=== PATIENT | female | born 1935 | race African-American/Black ===

== ENCOUNTER 2020-09-09 14:08 | Inpatient (IN) | payer MEDICARE, OTHER ==
[~2020-09-09] VITALS: Ht 154.9 cm; Wt 52.3 kg
[2020-09-09] MEDS ORDERED: SPIRONOLACTONE25 MG ORAL (14:19)
[2020-09-09] MEDS ORDERED: LATANOPROST2.5 ML BOTH EYES (14:19)
[2020-09-09] MEDS ORDERED: HYDRALAZINE HCL50 MG ORAL (14:19)
[2020-09-09] MEDS ORDERED: ACETAMINOPHEN325 M1 ORAL (14:20)
[2020-09-09 14:54] LABS: EOSINOPHILS % (AUTO) 2.9 % (0.0-3.0); HEMATOCRIT 39.2 % (37.0-47.0); HEMOGLOBIN 12.8 G/DL (12.0-16.0); LYMPHOCYTES % (AUTO) 47.5 % (20.0-45.0); MEAN CORPUSCULAR VOLUME 86 FL (80-99); MONOCYTES % (AUTO) 7.1 % (1.0-10.0); NEUTROPHILS % (AUTO) 41.5 % (45.0-75.0); PLATELET COUNT 145 K/UL (150-450); RED BLOOD COUNT 4.56 M/UL (4.20-5.40); RED CELL DISTRIBUTION WIDTH 13.5 % (11.6-14.8); WHITE BLOOD COUNT 4.7 K/UL (4.8-10.8)
--- NOTE | 2020-09-09 15:04 | Diagnostic Imaging Report ---
Indication: Altered mental status Technique: XRAY Chest 1v Comparison: 01/05/2008 Findings: Heart size and mediastinal contours within normal limits and stable compared to the prior exam. Atherosclerotic calcifications noted in the aorta. There is generalized interstitial prominence. Which is similar compared to the prior exam. No focal consolidation, pleural effusion or pneumothorax. Bones are demineralized and there are degenerative changes in the spine. IMPRESSION: Generalized nonspecific interstitial prominence, favored to be chronic as similar findings were noted on the previous exam. Focal airspace consolidation, pleural effusion or pneumothorax.
[2020-09-09 15:12] LABS: CALCIUM 8.7 MG/DL (8.5-10.1); CREATININE 1.1 MG/DL (0.55-1.30); POTASSIUM 3.7 MMOL/L (3.5-5.1)
--- NOTE | 2020-09-09 15:14 | Emergency Room Report ---
History of Present Illness General Chief Complaint: General Complaint Source: Patient, Medical Record, EMS Present Illness HPI This patient was [facility] in from a [facility]. She was sent in for change in her behavior. Per EMS, the patient had been yelling out and acting agitated. Also there was concern that her blood pressure was a little lower than it typically is with a systolic of 100. Patient has a history of bowel obstruction. She also has a history of encephalopathy and dementia. The patient herself has no specific complaints and is unable to give a history. 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 Patient History Past Medical History: see triage record, old chart reviewed, DM, CAD, GERD, dementia Social History: Denies: smoking, alcohol use, drug use Reviewed Nursing Documentation: PMH: Agreed; PSxH: Agreed Review of Systems All Other Systems: negative except mentioned in HPI Physical Exam Vital Signs Date Time Temp Pulse Resp B/P (MAP) Pulse Ox O2 Delivery O2 Flow Rate FiO2 09/09/20 14:09 98.2 80 16 158/84 (108) 90 Room Air Sp02 EP Interpretation: reviewed, normal General Appearance: no apparent distress, alert, GCS 15, non-toxic Head: normocephalic, atraumatic Eyes: bilateral eye normal inspection, bilateral eye PERRL ENT: hearing grossly normal, normal pharynx, no angioedema, normal voice Neck: full range of motion, supple/symm/no masses Respiratory: chest non-tender, lungs clear, normal breath sounds, no respiratory distress, no retraction, no accessory muscle use, speaking full sentences Cardiovascular #1: regular rate, rhythm, no edema Gastrointestinal: normal bowel sounds, non tender, soft, non-distended, no guarding, no rebound Rectal: deferred Musculoskeletal: back normal, normal range of motion, non-tender Neurologic: alert, motor strength/tone normal, oriented x3, sensory intact, responsive, speech normal Psychiatric: judgement/insight normal, mood/affect normal, no suicidal/homicidal ideation Skin: other - See RN skin exam Medical Decision Making Diagnostic Impression: Primary Impression: Altered mental status Additional Impressions: COVID-19 virus infection UTI (urinary tract infection) ER Course This patient was sent in for concern of altered mental status. I am unsure of the baseline mental status on this patient. There was also concern for low blood pressure. However, the patient had a normal blood pressure here in the emergency department. Actually the patient's blood pressure was slightly elevated. I did not identify an etiology for the patient's altered mental status. Possibly worsening dementia or TIA/CVA. CT of the head shows no acute findings. CT of the head is nonspecific for ischemic CVA. The patient does have evidence of chronic microvascular disease. This patient will be admitted for further evaluation by neurology, psychiatry and internal medicine for further evaluation of the change in mental status. The patient underwent COVID- 19 testing secondary to her residing in a [facility] facility. The COVID- 19 test was positive. The patient has no respiratory symptoms or chest x-ray findings that would make me concerned for ARDS or decompensation related to COVID-19. The patient was also found to have a urinary tract infection. She was given broad-spectrum antibiotics. Patient is admitted for further evaluation and treatment. This patient was evaluated in the context of the global COVID-19 pandemic, which necessitated consideration that the patient might be at risk for infection with the [id number] virus that causes COVID-19. Institutional protocols and algorithms that pertain to the evaluation of patients at risk for COVID-19 and the state of rapid change based on information released by multiple regulatory bodies including the CDC and federal and state organizations. These policies and algorithms were followed during the patient's care in the ED. Laboratory Tests Test 09/09/20 14:20 White Blood Count 4.7 K/UL (4.8-10.8) L Red Blood Count 4.56 M/UL (4.20-5.40) Hemoglobin 12.8 G/DL (12.0-16.0) Hematocrit 39.2 % (37.0-47.0) Mean Corpuscular Volume 86 FL (80-99) Mean Corpuscular Hemoglobin 28.0 PG (27.0-31.0) Mean Corpuscular Hemoglobin Concent 32.5 G/DL (32.0-36.0) Red Cell Distribution Width 13.5 % (11.6-14.8) Platelet Count 145 K/UL (150-450) L Mean Platelet Volume 9.8 FL (6.5-10.1) Neutrophils (%) (Auto) 41.5 % (45.0-75.0) L Lymphocytes (%) (Auto) 47.5 % (20.0-45.0) H Monocytes (%) (Auto) 7.1 % (1.0-10.0) Eosinophils (%) (Auto) 2.9 % (0.0-3.0) Basophils (%) (Auto) 1.0 % (0.0-2.0) Sodium Level 140 MMOL/L (136-145) Potassium Level 3.7 MMOL/L (3.5-5.1) Chloride Level 105 MMOL/L (98-107) Carbon Dioxide Level 27 MMOL/L (21-32) Anion Gap 8 mmol/L (5-15) Blood Urea Nitrogen 14 mg/dL (7-18) Creatinine 1.1 MG/DL (0.55-1.30) Estimated Glomerular Filtration Rate 57.7 mL/min (>60) Glucose Level 148 MG/DL (74-106) H Lactic Acid Level 1.60 mmol/L (0.4-2.0) Calcium Level 8.7 MG/DL (8.5-10.1) Magnesium Level 1.9 MG/DL (1.8-2.4) Total Bilirubin 0.3 MG/DL (0.2-1.0) Aspartate Amino Transferase (AST) 30 U/L (15-37) Alanine Aminotransferase (ALT) 24 U/L (12-78) Alkaline Phosphatase 83 U/L (46-116) Total Creatine Kinase 99 U/L (26-308) Creatine Kinase MB 1.6 NG/ML (0.0-3.6) Creatine Kinase MB Relative Index 1.6 Troponin I 0.010 ng/mL (0.000-0.056) Total Protein 6.9 G/DL (6.4-8.2) Albumin 3.6 G/DL (3.4-5.0) Globulin 3.3 g/dL Albumin/Globulin Ratio 1.1 (1.0-2.7) EKG Diagnostic Results Rate: normal Rhythm: other - SR w/ 1st degree AV block ST Segments: no acute changes Rhythm Strip Diag. Results EP Interpretation: yes Rate: 80's Rhythm: no PVC's, no ectopy, other - SR Chest X-Ray Diagnostic Results Chest X-Ray Diagnostic Results : Chest X-Ray Ordered: Yes # of Views/Limited/Complete: 1 View Indication: Other EP Interpretation: Yes Interpretation: no consolidation, no effusion, no pneumothorax, no acute cardiopulmonary disease Impression: No acute disease Electronically Signed by: Janet Fang DO CT/MRI/US Diagnostic Results CT/MRI/US Diagnostic Results : Imaging Test Ordered: CT head Impression No acute findings. Specifically no intracranial bleed, mass effect or edema. See official report. Significant atrophy. Nonspecific periventricular hypoattenuation suggestive of chronic ischemic microvascular changes. Last Vital Signs Date Time Temp Pulse Resp B/P (MAP) Pulse Ox O2 Delivery O2 Flow Rate FiO2 09/09/20 14:09 98.2 80 16 158/84 (108) 90 Room Air Status: improved Disposition: ADMITTED INPATIENT Condition: Serious Janet Fang DO Sep 09, 2020 15:14
--- NOTE | 2020-09-09 15:26 | Diagnostic Imaging Report ---
Indication: Altered mental status Technique: Continuous helical CT scanning of the head was performed utilizing automated exposure control without intravenous contrast material. Axial and coronal reconstructions were obtained. Comparison: None CT dose: Total DLP 2331.4 mGycm; CTDI vol 106.8 mGy Findings: There is no acute intracranial hemorrhage, mass effect or shift the midline structures. There foci of encephalomalacia in the bilateral parieto-occipital regions compatible with chronic infarcts in these regions. There is a chronic lacunar infarct in the left basal ganglia.. The ventricles, cisterns and sulci are prominent consistent with atrophy. Periventricular hypoattenuation is seen, a nonspecific finding. Visualized mastoid air cells and paranasal sinuses are unremarkable. No focal lesions of the bony calvarium or soft tissues of the scalp are seen. IMPRESSION: No evidence of acute intracranial hemorrhage, mass effect or cortical edema. MRI may be obtained for more sensitive evaluation as clinically indicated. Significant atrophy. Nonspecific periventricular hypoattenuation suggestive of chronic ischemic microvascular changes. The CT scanner at [facility] is accredited by the [employer] and the scans are performed using protocols designed to limit radiation exposure to as low as reasonably achievable to attain images of sufficient resolution adequate for diagnostic evaluation.
[2020-09-09 15:27] LABS: ALBUMIN 3.6 G/DL (3.4-5.0); ALBUMIN/GLOBULIN RATIO 1.1 (1.0-2.7); BILIRUBIN,TOTAL 0.3 MG/DL (0.2-1.0); CKMB 1.6 NG/ML (0.0-3.6)
[2020-09-09 15:44] VITALS: BP 148/81
[2020-09-09 16:08] LABS: APPEARANCE,URINE CLOUDY; BILIRUBIN, URINE NEGATIVE (NEGATIVE); COLOR,URINE YELLOW; GLUCOSE, URINE (UA) NEGATIVE (NEGATIVE); KETONES,URINE NEGATIVE (NEGATIVE); LEUKOCYTE ESTERASE ,URINE 3+ (NEGATIVE); NITRITE,URINE POSITIVE (NEGATIVE); PH,URINE 5 (4.5-8.0); PROTEIN,URINE 1+ (NEGATIVE); UROBILINOGEN,URINE NORMAL MG/DL (0.0-1.0)
[2020-09-09] MEDS ORDERED: Aspirin EC 81mg tab ORAL SCH (16:45)
[2020-09-09 17:00] VITALS: BP 132/74
[2020-09-09] MEDS ORDERED: cefTRIAXone 1 GM in NS 55 ML IVPB ONE (18:15)
[2020-09-09 19:00] VITALS: BP 142/69
[2020-09-09 21:00] VITALS: BP 138/86
[2020-09-10] VITALS (7 sets, daily range): BP systolic 131–165; BP diastolic 56–87
[2020-09-10] MEDS ORDERED: PANTOPRAZOLE SO40 MG ORAL (01:43)
[2020-09-10] MEDS ORDERED: MILK OF MA400 MG/51 ORAL (01:43)
[2020-09-10] MEDS ORDERED: ZOFRAN4 M3 ORAL (01:46)
[2020-09-10] MEDS ORDERED: COLACE100 MG ORAL (01:47)
[2020-09-10] MEDS: Spironolactone 25mg tab ORAL SCH (08:49)
[2020-09-10] MEDS: Docusate 100mg cap ORAL SCH ×2 (08:49→17:46)
[2020-09-10] MEDS: cefTRIAXone 1 GM in D5W 55 ML IVPB SCH (08:49)
[2020-09-10] MEDS: Heparin 5000 units/ml inj SUBQ SCH ×2 (09:05→20:34)
[2020-09-10] MEDS: 1/2NS w/KCl 20mEq 1000ml 1,000 ML IV SCH (09:51)
--- NOTE | 2020-09-10 18:00 | History and Physical Report ---
DATE OF ADMISSION: 09/09/2020 CHIEF COMPLAINT: Altered level of consciousness. HISTORY OF PRESENT ILLNESS: This is an 84-year-old female from [facility]. The patient's primary physician, Dr. Britney Koehler, asked me to admit the patient for her since she does not come to this hospital. The patient had altered level of consciousness. She was transferred here via paramedics. PAST MEDICAL HISTORY: 1. Type 2 diabetes mellitus. 2. Coronary artery disease. 3. Gastroesophageal reflux disease. 4. Organic brain syndrome. 5. Glaucoma. MEDICATIONS: Tylenol, Colace, Xalatan eye drops, Protonix, Aldactone. ALLERGIES: No known drug allergies. FAMILY HISTORY: Unable to obtain due to mental status. SOCIAL HISTORY: Unable to obtain due to mental status. REVIEW OF SYSTEMS: Unable to obtain due to mental status. PHYSICAL EXAMINATION: GENERAL: This is an elderly female, who is in no acute distress. VITAL SIGNS: Blood pressure 137/65; pulse 57, sinus bradycardia; respirations 20; and temperature 97.5, axillary. HEENT: Head is normocephalic and atraumatic. Pupils are equal, round, and reactive to light and accommodation. NECK: Supple. Trachea midline. There was no lymphadenopathy or thyromegaly. LUNGS: Clear to auscultation and percussion. HEART: Bradycardia, S1, S2. No rubs, murmurs, or gallops. ABDOMEN: Soft and nontender. Bowel sounds were active. EXTREMITIES: No clubbing, cyanosis, or edema. NEUROLOGIC: She is alert, but confused. There were no gross focal findings. LABORATORY AND ANCILLARY DATA: CBC within normal limits. Serum chemistry, lactic acid 1.6. Chemistry within normal limits. Urinalysis, yellow, cloudy, 2+ blood, positive nitrites, 5 to 10 rbc's, too numerous to count white blood cells, many bacteria. Head CT, no acute findings, significant atrophy. Microvascular changes. Chest x-ray, chronic interstitial changes. ASSESSMENT: 1. Urinary tract infection. 2. Type 2 diabetes mellitus. 3. Coronary artery disease. 4. Gastroesophageal reflux disease. 5. Organic brain syndrome. 6. Glaucoma. PLAN: 1. IV fluid rehydration. 2. IV antibiotics. Paige Burnett M.D. DR: BETO JOB#: [id number] CC:
--- NOTE | 2020-09-10 19:40 | CDS Physician Query ---
Clarification is required for compliance, coding accuracy, and to reflect severity of illness for this patient Dear Dr.Pagiel Lex MD. Date: 09/10/20 CDIS Name: Andrea Proctor 84-year-old female from [facility]. The patient's primary physician, Dr. Britney Koehler, asked me to admit the patient for her since she does not come to this hospital. The patient had altered level of consciousness. NEUROLOGIC: She is alert, but confused. There were no gross focal findings. ASSESSMENT: 1. Urinary tract infection. 2. Type 2 diabetes mellitus. 3. Coronary artery disease. 4. Gastroesophageal reflux disease. 5. Organic brain syndrome. 6. Glaucoma. ED Diagnostic Impression: [Janet Helton DO 09/09] Primary Impression: Altered mental status Additional Impressions: COVID-19 virus infection UTI (urinary tract infection) LABORATORY AND ANCILLARY DATA: CBC within normal limits. Serum chemistry, lactic acid 1.6. Chemistry within normal limits. Urinalysis, yellow, cloudy, 2+ blood, positive nitrites, 5 to 10 rbc's, too numerous to count white blood cells, many bacteria. Please indicate the nature and chronicity of the condition below: [] Metabolic Encephalopathy [] Toxic Encephalopathy [X] Toxic - Metabolic Encephalopathy [] Encephalopathy, Other [] Other: [] Not Applicable Present on Admission: [] Yes [] No [] Clinically Undetermined Physician signature Date Please also document in your Progress Notes and/or Discharge Summary and indicate if the condition was present on admission. MTDD
[2020-09-10] MEDS: Latanoprost 0.005% Opth 2.5ml Soln BOTH EYES SCH (20:31)
[2020-09-11] VITALS (7 sets, daily range): BP systolic 123–161; BP diastolic 58–91
[2020-09-11] MEDS: 1/2NS w/KCl 20mEq 1000ml 1,000 ML IV SCH ×2 (02:57→18:31)
[2020-09-11 07:44] LABS: ANION GAP 9 mmol/L (5-15); BLOOD UREA NITROGEN 18 mg/dL (7-18); CALCIUM 9.1 MG/DL (8.5-10.1); CARBON DIOXIDE 25 MMOL/L (21-32); CHLORIDE 105 MMOL/L (98-107); HEMATOCRIT 41.3 % (37.0-47.0); HEMOGLOBIN 12.8 G/DL (12.0-16.0); MEAN CORPUSCULAR VOLUME 89 FL (80-99); PLATELET COUNT 122 K/UL (150-450); POTASSIUM 4.3 MMOL/L (3.5-5.1); RED BLOOD COUNT 4.64 M/UL (4.20-5.40); RED CELL DISTRIBUTION WIDTH 13.7 % (11.6-14.8); SODIUM 139 MMOL/L (136-145); WHITE BLOOD COUNT 5.4 K/UL (4.8-10.8)
[2020-09-11] MEDS: Spironolactone 25mg tab ORAL SCH (08:39)
[2020-09-11] MEDS: cefTRIAXone 1 GM in D5W 55 ML IVPB SCH (08:39)
[2020-09-11] MEDS: Docusate 100mg cap ORAL SCH ×2 (08:39→17:11)
[2020-09-11] MEDS: Heparin 5000 units/ml inj SUBQ SCH ×2 (08:40→21:00)
--- NOTE | 2020-09-11 14:34 | General Progress Note ---
Subjective Allergies: Coded Allergies: No Known Allergies (Unverified , 09/09/20) Subjective Confused Objective Last 24 Hour Vital Signs Date Time Temp Pulse Resp B/P (MAP) Pulse Ox O2 Delivery O2 Flow Rate FiO2 09/11/20 12:00 59 09/11/20 12:00 98.1 60 142/73 (96) 09/11/20 09:00 Room Air 09/11/20 08:00 97.9 51 151/72 (98) 09/11/20 08:00 55 09/11/20 04:00 42 09/11/20 04:00 97.9 49 17 123/58 (79) 97 09/11/20 00:00 54 09/11/20 00:00 97.2 52 17 145/76 (99) 97 09/10/20 21:00 Room Air 09/10/20 20:00 56 09/10/20 20:00 97.2 56 19 148/69 (95) 96 09/10/20 16:00 97.5 57 20 137/65 (89) 96 09/10/20 16:00 48 Intake and Output 09/10/20 09/11/20 19:00 07:00 Intake Total 900 ml 210 ml Output Total 200 ml Balance 700 ml 210 ml Intake Oral 420 ml 210 ml IV Total 480 ml Output Urine Total 200 ml # Voids 3 2 # Bowel Movements 4 1 Laboratory Tests 09/11/20 06:57: White Blood Count 5.4, Red Blood Count 4.64, Hemoglobin 12.8, Hematocrit 41.3, Mean Corpuscular Volume 89, Mean Corpuscular Hemoglobin 27.6, Mean Corpuscular Hemoglobin Concent 31.0L, Red Cell Distribution Width 13.7, Platelet Count 122L, Mean Platelet Volume 9.5, Neutrophils (%) (Auto) , Lymphocytes (%) (Auto) , Monocytes (%) (Auto) , Eosinophils (%) (Auto) , Basophils (%) (Auto) , Differential Total Cells Counted 100, Neutrophils % (Manual) 25L, Lymphocytes % (Manual) 67H, Monocytes % (Manual) 1, Eosinophils % (Manual) 7H, Basophils % (Manual) 0, Band Neutrophils 0, Platelet Estimate DecreasedL, Platelet Morphology Normal, Red Blood Cell Morphology Normal, Sodium Level 139, Potassium Level 4.3, Chloride Level 105, Carbon Dioxide Level 25, Anion Gap 9, Blood Urea Nitrogen 18, Creatinine 1.0, Estimat Glomerular Filtration Rate > 60, Glucose Level 90, Calcium Level 9.1 Height (Feet): 5 Height (Inches): 1.00 Weight (Pounds): 113 Objective CV RR Lungs CTA Abd SNT. BS + E No CCE Neuro confused. Nonfocal. Assessment/Plan Assessment/Plan: E. Coli UTI - IV Abx Volume Depletion - IVF. AMS improving Paige Burnett MD Sep 11, 2020 14:34
[2020-09-11] MEDS: Latanoprost 0.005% Opth 2.5ml Soln BOTH EYES SCH (21:00)
[2020-09-12] MEDS ORDERED: OLANZapine 2.5mg tab ORAL PRN (00:45)
[2020-09-12] MEDS: OLANZapine 2.5mg tab ORAL SCH ×3 (03:40→21:12)
[2020-09-12 04:00] VITALS: BP 152/85
--- NOTE | 2020-09-12 06:00 | Consultation ---
DATE OF CONSULTATION: 09/11/2020 HISTORY OF PRESENT ILLNESS: The patient is an 84-year-old female with a history of multiple medical problems including type 2 diabetes, coronary artery disease, GERD, and glaucoma who has been admitted to the hospital from [facility]. The patient is well known to me from [facility]. The patient has been admitted for COVID-19. The patient pulled out her IV today and got out of the restraints. The patient is confused, disoriented, not able to be engaged in evaluation . She is easily agitated. PAST PSYCHIATRIC HISTORY: Dementia. PAST MEDICAL HISTORY: As above. ALLERGIES: No known drug allergies. SUBSTANCE ABUSE HISTORY: No known history of illicit drug use or alcohol. MENTAL STATUS EXAMINATION: The patient is confused, disoriented. Mood is agitated. Affect is flat. Thought process is paucity of thought content. Thought content, no suicidal or homicidal ideation. Cognition is impaired. Insight and judgment impaired. ASSESSMENT: D Hanis I Dementia. Acute toxic encephalopathy. D Hanis II Deferred. D Hanis III COVID-19. D Hanis IV Low. D Hanis V 20. PLAN: 1. Zyprexa 2.5 b.i.d. 2. Continue leather restraints. 3. Continue to follow and readjust the medications. Amber Matos M.D. DR: Joselito JOB#: [id number] CC:
[2020-09-12 08:00] VITALS: BP 156/76
[2020-09-12] MEDS: Heparin 5000 units/ml inj SUBQ SCH ×2 (09:00→21:00)
[2020-09-12] MEDS: Docusate 100mg cap ORAL SCH ×2 (09:24→18:09)
[2020-09-12] MEDS: Spironolactone 25mg tab ORAL SCH (09:24)
[2020-09-12] MEDS: cefTRIAXone 1 GM in D5W 55 ML IVPB SCH (09:28)
--- NOTE | 2020-09-12 09:31 | General Progress Note ---
Subjective ROS Limited/Unobtainable: Yes Allergies: Coded Allergies: No Known Allergies (Unverified , 09/09/20) Objective Last 24 Hour Vital Signs Date Time Temp Pulse Resp B/P (MAP) Pulse Ox O2 Delivery O2 Flow Rate FiO2 09/12/20 04:00 98.4 65 20 152/85 (107) 96 09/12/20 04:00 68 09/12/20 00:00 64 09/11/20 23:53 98.6 65 20 161/91 (114) 96 09/11/20 21:00 Room Air 09/11/20 20:00 98.5 70 20 139/83 (101) 94 09/11/20 20:00 70 09/11/20 16:00 98 09/11/20 16:00 98.2 78 148/80 (102) 09/11/20 12:00 59 09/11/20 12:00 98.1 60 142/73 (96) Intake and Output 09/11/20 09/12/20 19:00 07:00 Intake Total 480 ml Output Total 250 ml Balance 480 ml -250 ml Intake Oral 480 ml Output Urine Total 250 ml # Bowel Movements 3 2 Height (Feet): 5 Height (Inches): 1.00 Weight (Pounds): 113 General Appearance: no apparent distress, lethargic, confused EENT: normal ENT inspection Neck: normal alignment, supple Cardiovascular: normal rate, regular rhythm Respiratory/Chest: lungs clear Abdomen: non tender Edema: no edema noted Arm (L), no edema noted Arm (R), no edema noted Leg (L), no edema noted Leg (R), no edema noted Pedal (L), no edema noted Pedal (R), no edema noted Generalized Neurologic: disoriented Assessment/Plan Problem List: (1) UTI (urinary tract infection) ICD Codes: N39.0 - Urinary tract infection, site not specified SNOMED: 55947734 (2) Altered mental status ICD Codes: R41.82 - Altered mental status, unspecified SNOMED: 334836512 (3) COVID-19 virus infection ICD Codes: U07.1 - COVID-19 SNOMED: 247070011 Assessment/Plan: no hypoxemia, rechaeck cxr, continue ceftriaxone Pk Pascual MD Sep 12, 2020 09:31
[2020-09-12 12:00] VITALS: BP 135/56
[2020-09-12] MEDS: 1/2NS w/KCl 20mEq 1000ml 1,000 ML IV SCH (12:10)
[2020-09-12 16:00] VITALS: BP 132/78
[2020-09-12 20:00] VITALS: BP 125/65
[2020-09-12] MEDS: Latanoprost 0.005% Opth 2.5ml Soln BOTH EYES SCH (21:16)
[2020-09-13] VITALS (8 sets, daily range): BP systolic 118–170; BP diastolic 51–92
[2020-09-13] MEDS: 1/2NS w/KCl 20mEq 1000ml 1,000 ML IV SCH (04:16)
[2020-09-13 07:52] LABS: HEMATOCRIT 40.2 % (37.0-47.0); HEMOGLOBIN 12.4 G/DL (12.0-16.0); MEAN CORPUSCULAR VOLUME 89 FL (80-99); PLATELET COUNT 132 K/UL (150-450); RED BLOOD COUNT 4.52 M/UL (4.20-5.40); RED CELL DISTRIBUTION WIDTH 13.6 % (11.6-14.8); WHITE BLOOD COUNT 4.3 K/UL (4.8-10.8)
[2020-09-13 08:23] LABS: ALANINE AMINOTRANSFERASE 32 U/L (12-78); ALBUMIN 3.4 G/DL (3.4-5.0); ALBUMIN/GLOBULIN RATIO 0.9 (1.0-2.7); ALKALINE PHOSPHATASE 75 U/L (46-116); ANION GAP 7 mmol/L (5-15); ASPARTATE AMINO TRANSFERASE 33 U/L (15-37); BILIRUBIN,TOTAL 0.4 MG/DL (0.2-1.0); BLOOD UREA NITROGEN 12 mg/dL (7-18); CALCIUM 8.8 MG/DL (8.5-10.1); CARBON DIOXIDE 28 MMOL/L (21-32); CHLORIDE 107 MMOL/L (98-107); FERRITIN 88 NG/ML (8-388); POTASSIUM 4.5 MMOL/L (3.5-5.1); SODIUM 141 MMOL/L (136-145)
--- NOTE | 2020-09-13 08:28 | Diagnostic Imaging Report ---
EXAM: XR Chest, 1 View CLINICAL HISTORY: COUGH TECHNIQUE: Frontal view of the chest. COMPARISON: Chest x-ray dated 09/09/20 FINDINGS: Lungs: Unchanged prominent interstitial markings. The lungs are otherwise clear without focal consolidation. Pleural space: Unremarkable. The costophrenic angles are sharp. No visible pneumothorax. Heart: Unremarkable. No cardiomegaly. Mediastinum: Unremarkable. Bones/joints: Multilevel degenerative disc space loss and endplate osteophytes throughout the visualized spine. Vasculature: Atherosclerotic calcifications within the aortic arch. Tubes, lines and devices: Telemetry leads overlie the thorax. IMPRESSION: Unchanged prominent interstitial markings. This is likely related to chronic senescent changes although differential diagnosis may also include mild bronchitis or pneumonitis.
[2020-09-13] MEDS: Heparin 5000 units/ml inj SUBQ SCH ×2 (09:00→21:00)
[2020-09-13] MEDS: cefTRIAXone 1 GM in D5W 55 ML IVPB SCH (09:15)
[2020-09-13] MEDS: Docusate 100mg cap ORAL SCH ×2 (09:15→17:59)
[2020-09-13] MEDS: Spironolactone 25mg tab ORAL SCH (09:15)
[2020-09-13] MEDS ORDERED: OLANZapine 2.5mg tab ORAL SCH (09:30)
--- NOTE | 2020-09-13 10:39 | General Progress Note ---
Subjective ROS Limited/Unobtainable: Yes Allergies: Coded Allergies: No Known Allergies (Unverified , 09/09/20) Objective Last 24 Hour Vital Signs Date Time Temp Pulse Resp B/P (MAP) Pulse Ox O2 Delivery O2 Flow Rate FiO2 09/13/20 10:00 158/66 (96) 09/13/20 08:00 99.5 60 18 170/70 (103) 96 09/13/20 07:46 46 09/13/20 05:35 97.0 61 20 130/51 (77) 95 09/13/20 04:00 97.4 57 19 130/72 (91) 96 09/13/20 04:00 57 09/13/20 00:00 97.5 48 18 118/60 (79) 97 09/12/20 21:01 Room Air 09/12/20 20:00 45 09/12/20 20:00 97.0 58 20 125/65 (85) 96 09/12/20 16:00 57 09/12/20 16:00 97.5 74 20 132/78 (96) 97 09/12/20 12:00 48 09/12/20 12:00 97.5 76 20 135/56 (82) 97 Intake and Output 09/12/20 09/13/20 19:00 07:00 Intake Total 236 ml Balance 236 ml Intake Oral 236 ml # Voids 2 3 Laboratory Tests 09/13/20 06:30: White Blood Count 4.3L, Red Blood Count 4.52, Hemoglobin 12.4, Hematocrit 40.2, Mean Corpuscular Volume 89, Mean Corpuscular Hemoglobin 27.4, Mean Corpuscular Hemoglobin Concent 30.8L, Red Cell Distribution Width 13.6, Platelet Count 132L, Mean Platelet Volume 8.4, Neutrophils (%) (Auto) , Lymphocytes (%) (Auto) , Monocytes (%) (Auto) , Eosinophils (%) (Auto) , Basophils (%) (Auto) , Neutrophils % (Manual) [Pending], Lymphocytes % (Manual) [Pending], Platelet Estimate [Pending], Platelet Morphology [Pending], Sodium Level 141, Potassium Level 4.5, Chloride Level 107, Carbon Dioxide Level 28, Anion Gap 7, Blood Urea Nitrogen 12, Creatinine 1.0, Estimat Glomerular Filtration Rate > 60, Glucose Level 82, Calcium Level 8.8, Ferritin 88, Total Bilirubin 0.4, Aspartate Amino Transf (AST/SGOT) 33, Alanine Aminotransferase (ALT/SGPT) 32, Alkaline Phosphatase 75, C-Reactive Protein, Quantitative < 0.4, Total Protein 7.1, Albumin 3.4, Globulin 3.7, Albumin/Globulin Ratio 0.9L Height (Feet): 5 Height (Inches): 1.00 Weight (Pounds): 113 General Appearance: lethargic, confused EENT: normal ENT inspection Neck: normal alignment Cardiovascular: regular rhythm Respiratory/Chest: lungs clear Abdomen: soft Edema: no edema noted Arm (L), no edema noted Arm (R), no edema noted Leg (L), no edema noted Leg (R), no edema noted Pedal (L), no edema noted Pedal (R), no edema noted Generalized Neurologic: disoriented Assessment/Plan Problem List: (1) UTI (urinary tract infection) ICD Codes: N39.0 - Urinary tract infection, site not specified SNOMED: 29329794 (2) Altered mental status ICD Codes: R41.82 - Altered mental status, unspecified SNOMED: 967731517 (3) COVID-19 virus infection ICD Codes: U07.1 - COVID-19 SNOMED: 363210375 Assessment/Plan: no hypoxemia, rechaeck cxr, CHREONIC CHANGES, BP BORDERLINE, LOSARTAN AT HS, continue ceftriaxone Pk Pascual MD Sep 13, 2020 10:39
[2020-09-13] MEDS: OLANZapine 2.5mg tab ORAL SCH (17:59)
[2020-09-13] MEDS: Losartan 50mg tab ORAL SCH (21:00)
[2020-09-13] MEDS: Latanoprost 0.005% Opth 2.5ml Soln BOTH EYES SCH (21:00)
[2020-09-14] VITALS: BP 157/75
[2020-09-14 04:00] VITALS: BP 156/53
[2020-09-14 08:00] VITALS: BP 134/58
[2020-09-14] MEDS: Docusate 100mg cap ORAL SCH ×2 (08:06→18:00)
[2020-09-14] MEDS: OLANZapine 2.5mg tab ORAL SCH ×2 (08:06→18:01)
[2020-09-14] MEDS: cefTRIAXone 1 GM in D5W 55 ML IVPB SCH (08:07)
[2020-09-14] MEDS: Heparin 5000 units/ml inj SUBQ SCH (08:07)
[2020-09-14 12:00] VITALS: BP 146/64
[2020-09-14 16:09] VITALS: BP 135/71
--- NOTE | 2020-09-15 00:15 | General Progress Note ---
Subjective Allergies: Coded Allergies: No Known Allergies (Unverified , 09/09/20) Objective Last 24 Hour Vital Signs Date Time Temp Pulse Resp B/P (MAP) Pulse Ox O2 Delivery O2 Flow Rate FiO2 09/14/20 16:09 98.1 71 18 135/71 (92) 96 09/14/20 16:00 85 09/14/20 12:00 61 09/14/20 12:00 97.2 61 20 146/64 (91) 99 09/14/20 09:00 Room Air 09/14/20 08:00 97.0 60 18 134/58 (83) 99 09/14/20 08:00 54 09/14/20 04:00 46 09/14/20 04:00 76.9 52 19 156/53 (87) 94 Intake and Output 09/14/20 09/15/20 18:59 06:59 Intake Total 1000 ml Output Total 950 ml Balance 50 ml Intake Oral 1000 ml Output Urine Total 950 ml Height (Feet): 5 Height (Inches): 1.00 Weight (Pounds): 113 Amber Matos MD Sep 15, 2020 00:15
--- NOTE | 2020-09-15 00:15 | Psych Consult Progress Note ---
Psychiatry Progress Note Psychiatry Progress Note Allergies: Coded Allergies: No Known Allergies (Unverified , 09/09/20) Objective Data Height (Feet): 5 Height (Inches): 1.00 Weight (Pounds): 113 General Appearance: lethargic, confused Amber Matos MD Sep 15, 2020 00:15
--- NOTE | 2020-09-15 10:36 | Discharge Summary ---
Discharge Summary Discharge Summary _ DATE OF ADMISSION: 09/09/2020 DATE OF DISCHARGE: 09/14/2020 DISCHARGED BY: Dr. Burnett REASON FOR ADMISSION: 84 years old female with past medical history of type 2 diabetes mellitus, coronary artery disease, organic brain syndrome, dementia, GERD, glaucoma, resident of longterm facility, presented to emergency department due to altered mental status Patient apparently was yelling and acting agitated at the facility. Upon evaluation blood pressure was 158/84 , pulse oximetry was 90% on room air, no fevers. Laboratory work-up revealed no leukocytosis , stable hemoglobin , hematocrit ; platelet count 145. Stable electrolytes. BUN 14, creatinine 1.1. Lactic acid 1.6. Glucose 148. Troponin negative. EKG revealed sinus rhythm with a first-degree AV block. Stable LFT. Chest x-ray revealed no acute cardiopulmonary pathology. Urinalysis revealed evidence of UTI with positive nitrate , +3 leukocyte esterase, pyuria and many bacteria. CT of the head revealed no acute intracranial pathology. Chest x-ray revealed general nonspecific interstitial prominence, likely chronic with similar findings on the previous exam. In emergency department rapid COVID-19 was positive. Patient received IV fluids , pancultured , started on broad-spectrum antibiotic ,received Zyprexa and admitted for further management. CONSULTANTS: psychiatrist Dr. Matos [facility] COURSE: Patient admitted to telemetry floor. Patient was in isolation. Supplemental oxygen was on board as needed to keep pulse oximetry above 92% . Pulse oximetry remained stable on room air. No steroids were started. Respiratory status was closely monitored. Blood culture were negative . Urine culture revealed E. coli . Repeated rapid COVID 19 x2 were both negative. Blood pressure was managed with Losartan. Blood pressure stabilized. prior to discharge 135/71. DVT and GI prophylaxis provided. Repeated CXR demonstarted unchanged prominent interstitial markings, likely related to chronic senescent changes . Per psychiatrist , who seen and evaluated patient, patient had dementia and acute toxic encephalopathy. Patient was continued with Zyprexa. Patient clinically stabilized and was ready for discharge back to longterm facility for continuation of care. FINAL DIAGNOSES: COVID-19 infection UTI with E. coli Dementia Acute toxic encephalopathy Hypertension DISCHARGE MEDICATIONS: List of medication was sent to accepting facility DISCHARGE INSTRUCTIONS: Patient was discharged to the longterm facility. Follow up with medical doctor at the facility. I have been assigned to dictate discharge summary for this account. I was not involved in the patient's management. Kaylie Ring NP Sep 15, 2020 10:35
== END 2020-09-14 19:45 | DRG 177 ==
LOC: EDUNIT# 14:08 → EDBD 14:08 → EMR 17:09 → 2E 17:15 → EDBEDREQ 20:54 → 2E 22:50
DX: U07.1 COVID-19 (principal); G92 Toxic encephalopathy; N39.0 Urinary tract infection, site not specified; B96.20 Unspecified Escherichia coli [E. coli] as the cause of diseases classified elsewhere; E11.9 Type 2 diabetes mellitus without complications; I25.10 Atherosclerotic heart disease of native coronary artery without angina pectoris; K21.9 Gastro-esophageal reflux disease without esophagitis; H40.9 Unspecified glaucoma; F03.90 Unspecified dementia, unspecified severity, without behavioral disturbance, psychotic disturbance, mood disturbance, and anxiety; I10 Essential (primary) hypertension
CPT/HCPCS: 36415; 70450; 71045; 80048; 80053; 81003; 82550; 82553; 82728; 83605; 83735; 84484; 85007; 85025; 86140; 87040; 87081; 87086; 87181; 93005; 96361; 96365; 99285; J7030; U0002